=== PATIENT | male | born 1960 | race Caucasian/White ===

== ENCOUNTER → 2022-07-11 | Outpatient (CLI) | payer OTHER | END | disposition home or self-care (01) | LOC: RAH 12:42 | PROVIDERS: ATTEND Physical Medicine & Rehabilitation | DX: M50.30 Other cervical disc degeneration, unspecified cervical region (principal); M54.12 Radiculopathy, cervical region; M99.01 Segmental and somatic dysfunction of cervical region; M50.323 Other cervical disc degeneration at C6-C7 level; M48.02 Spinal stenosis, cervical region | CPT/HCPCS: 72141 ==

== ENCOUNTER 2022-07-30 10:05 | Emergency (ER) | payer OTHER ==
[~2022-07-30] VITALS: Ht 167.6 cm; Wt 99.8 kg
[2022-07-30 12:01] LABS: BASOPHILS % (AUTO) 0.4 % (0.0-5.0); EOSINOPHILS % (AUTO) 1.5 % (0.0-8.0); HEMATOCRIT 47.9 % (42-54); LYMPHOCYTES % (AUTO) 15.2 % (21.0-51.0); MEAN CORPUSCULAR HEMOGLOBIN 28.5 pg (27.0-33.0); MEAN CORPUSCULAR HGB CONC 33.4 g/dL (32.0-36.0); MEAN CORPUSCULAR VOLUME 85.2 fL (79-99); MONOCYTES % (AUTO) 6.9 % (3.0-13.0); NEUTROPHILS % (AUTO) 75.8 % (40.0-77.0); PLATELET COUNT (AUTO) 202 K/uL (130-400); RED BLOOD CELL COUNT(AUTO) 5.62 MIL/uL (4.50-6.20); RED CELL DISTRIBUTION WIDTH 12.4 % (11.0-15.5); WHITE BLOOD COUNT (AUTO) 9.3 K/uL (4.8-10.8)
[2022-07-30 12:17] LABS: ALBUMIN 4.2 g/dL (3.5-5.0); MAGNESIUM 2.2 mg/dL (1.80-2.40); POTASSIUM 4.4 mmol/L (3.5-5.1); TOTAL PROTEIN, SERUM 8.1 g/dL (6.0-8.3)
[2022-07-30] MEDS ORDERED: DiphenhydrAMINE HCL 50 MG/ML VIAL IV ONE (15:30)
[2022-07-30 16:00] VITALS: BP 154/49
[2022-07-30] MEDS ORDERED: LORAZEPAM 2 MG/ML 1 ML VIAL IVP ONE (16:00)
[2022-07-30] MEDS ORDERED: LORA-192 PO (17:25)
== END 2022-07-30 17:56 | disposition home or self-care (01) ==
LOC: EDH 10:05
DX: R25.1 Tremor, unspecified (principal); T50.995A Adverse effect of other drugs, medicaments and biological substances, initial encounter; E11.9 Type 2 diabetes mellitus without complications; E78.5 Hyperlipidemia, unspecified; F32.A Depression, unspecified; I10 Essential (primary) hypertension; Z88.2 Allergy status to sulfonamides; Y92.89 Other specified places as the place of occurrence of the external cause
CPT/HCPCS: 99284; 96374; 96375; 83735; 80053; 85025; 36415; 93005; J1200; J2060